=== PATIENT | male | born 1990 | race African-American/Black ===

== ENCOUNTER 2020-11-16 16:58 | Emergency (ER) | payer OTHER ==
[~2020-11-16] VITALS: Ht 180.3 cm; Wt 81.6 kg
[2020-11-16 17:44] VITALS: BP 127/87
== END 2020-11-16 18:02 | disposition left against medical advice (07) ==
LOC: ER 16:58 → EDBD 16:58 → ER 18:02
DX: R55 Syncope and collapse (principal)